=== PATIENT | male | born 1975 | race Caucasian/White ===

== ENCOUNTER 2019-09-29 14:16 | Outpatient (CLI) | payer BC, SELFPAY ==
--- NOTE | 2019-10-07 03:31 | SLEEP_ITS ---
DATE OF STUDY: 09/29/2019 ORDERING PHYSICIAN: Edenilson Holm M.D. REASON FOR THIS STUDY: Non-restorative sleep, loud snoring. HISTORY: This patient is a 44-year-old male, who is 62 inches tall, weighing 230 pounds with a body mass index of 29.5. He has a history of loud snoring, restless, non-restorative sleep and feeling tired when he awakens. For the last 10-15 years, he has had snoring and daytime fatigue, which is getting worse over the last 3 years. He constantly snores loudly enough that others complain about it. He occasionally awakens at night with heartburn, belching, or coughing. He frequently awakens from sleep feeling short of breath. He occasionally has trouble sleeping with a cold. He rarely wakes up gasping for breath at night. He constantly has breathing problems witnessed by others. He frequently sweats excessively at night and occasionally notices his heart pounding or beating irregularly at night. He does not fall asleep during the day, does not fall asleep while driving, does not fall asleep with physical effort and does not have loss of muscle tone with strong emotion. He occasionally has daytime difficulties at work due to sleepiness. 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 He denies feeling paralyzed on waking or falling asleep. He does not have vivid dreamlike scenes upon awakening or falling asleep and he is not afraid to go to sleep. He occasionally has nightmares, occasionally remembers his dreams. He frequently has racing thoughts. He occasionally feels sad, depressed. Rarely feels anxious. He occasionally has muscular tension. He does not notice parts of his body jerking at night. He does not report kicking during the night. He does not have crawly achy feeling in his legs, does not have leg pain at night, does not have morning jaw pain. Occasionally, he does grind his teeth during sleep. He frequently is bothered by pain during the day. He rarely is awakened by pain at night. He constantly wakes up feeling stiff in the morning, frequently with sore achy muscles, rarely with pain in the neck and spine. He has stomach problems, memory problems, concentration difficulties, nightmares, and depression. Normal bedtime is 11 p.m., falling asleep instantly, waking at least 3-4 times at night and will try to lie still in the bed and fall asleep again. When he does awaken, he states it seems like an hour that he stays awake. He wakes in the morning at 6:30 a.m. He estimates 6-7 hours of sleep at night. On the weekends, he will go to sleep at midnight or 1 a.m. and wakes up at 7:30 a.m. He does not take naps in the afternoon or evening. A short nap can be refreshing. He is usually drowsy in the morning for 2 hours or longer. MEDICAL COMORBIDITIES: Asthma, rhinitis, seasonal allergies, and GERD. MEDICATIONS: 1. Breo inhaler 1 puff daily. 2. Nasacort nasal spray, 1 spray each nostril twice a day. HABITS: Never smoked tobacco. Caffeine, 2 to 3 cups of coffee a day. Alcohol 2-3 beverages a day. No recreational drugs. DESCRIPTION OF STUDY: On the Morgan Sleepiness Scale, his score is 12, elevated. This was conducted as a portable home sleep test using 4 channel monitoring including respiratory effort channel, oxygen saturation channel, snoring channel, and heart rate channel. The study was scored using [facility] guidelines. The apnea-hypopnea index was 2. The oxygen desaturation index is 2. The lowest desaturation is 89%. He had 3 apneas. Two of the apneas were obstructive, 67%, 1 apnea was central, 33%, he had 12 hypopneas, 161 snoring events and spent no time below 88%. He desaturated 13 times. Pulse ranged from 58-98. Average saturation during the study was 93%. IMPRESSION: This home sleep test does not show evidence of significant sleep-disordered breathin
== END 2019-09-29 14:17 | disposition home or self-care (01) ==
LOC: ANHCSM 12-16 14:16
PROVIDERS: PCP Family Medicine; Visit Provider Family Medicine
DX: G47.33 Obstructive sleep apnea (adult) (pediatric) (principal)
CPT/HCPCS: 95806

== ENCOUNTER 2019-10-13 13:26 | Outpatient (CLI) | payer BC, SELFPAY ==
--- NOTE | ~2019-10-13 | XR_ITS ---
XR hand RT min 3V DATE: 10/13/2019 13:55 INDICATION: Injury to first metacarpophalangeal joint one week ago. Pain in fingers. TECHNIQUE: 3 views COMPARISON: None FINDINGS: No fracture or dislocation, periosteal reaction or bone destruction. IMPRESSION: Negative Reviewed, dictated and finalized at location A. IMPRESSION: Negative
== END 2019-10-13 13:27 | disposition home or self-care (01) ==
PROVIDERS: PCP Family Medicine; Visit Provider Family Medicine
DX: M79.644 Pain in right finger(s) (principal)
CPT/HCPCS: 73130

== ENCOUNTER → 2020-09-22 02:43 | Outpatient (CLI) | payer OTHER, SELFPAY ==
[2020-09-22 21:58] LABS: SARS-CoV-2 RNA PCR Negative
== END ==
PROVIDERS: PCP Family Medicine; Visit Provider Internal Medicine Critical Care Medicine
DX: Z01.812 Encounter for preprocedural laboratory examination (principal); Z20.822 Contact with and (suspected) exposure to COVID-19
CPT/HCPCS: C9803; U0003; U0005

== ENCOUNTER 2020-09-25 08:49 | Outpatient (CLI) | payer OTHER, SELFPAY ==
--- NOTE | 2020-10-09 12:28 | WPDSLEEPSTUD ---
Sleep Study Date of Study: 09/25/20 Ordering Provider: Edenilson Holm MD Interpreting Physician: Natalie Meyer MD Sleep Study Type: Polysomnogram Height: 2.08 m Weight: 104.326 kg Body Mass Index: 24.0 Neck Circumference (inches): 17 [place]: 14 Reason for Sleep Study Loud snoring with witnessed apnea Sleep History Edenilson Black is a 45-year-old man who says that his notes very loud snoring and episodes where his breathing is interrupted at night, possible apnea. He does not feel that he gets quality sleep on most nights. He is not wide awake during the day. He feels that he goes in and out of sleep frequently. He is tired and lethargic most days. He has a difficult time focusing. This has worsened over the last 2-3 years. He frequently snores, and frequently loud enough that others complain about it. He does not awaken at night with heartburn, belching or coughing. He occasionally awakens from sleep feeling short of breath. He rarely has trouble sleeping with a cold. He does not wake up gasping for breath at night. He occasionally has breathing problems at night observed by others. He occasionally sweats excessively at night. He does not notice his heart pounding or beating irregularly at night. He occasionally falls asleep during the day, never involuntarily, and never while driving. He does not have loss of muscle tone with strong emotion. He occasionally has daytime difficulties due to extent excessive sleepiness. 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 He does not feel paralyzed on waking or falling asleep. He does not have vivid dreamlike scenes upon awakening or falling asleep. He does not feel afraid to go to sleep. He occasionally has nightmares. He occasionally remembers his dreams. He frequently has racing thoughts. He occasionally feels sad or depressed. He rarely has anxiety. He occasionally has muscular tension. He does not notice part of his body jerking. He does not kick at night and does not have crawling or aching feelings in his legs at night. He denies any kind of leg pain at night. He does not have morning jaw pain. He does not grind his teeth during sleep. He is not bothered by pain during the day. He is not awakened by pain at night. He frequently wakes up feeling stiff in the morning with sore or achy muscles and pain in the neck and spine. He has headaches, nightmares, fatigue, memory problems and concentration difficulties. Normal bedtime is between 11:00 p.m. and 12 midnight falling asleep instantly typically waking several times at night for short period of time. He stays in bed and then eventually is able to go back to sleep. He wakes the morning between 6 and 7:00 a.m.. Weekend schedule is similar. Waking up between 7 and 8:00 a.m.. He does not generally take naps. A short 10 or 15 minute nap may be refreshing. He is usually drowsy in morning for 2 hours or longer. Habits: Never smoked tobacco. Caffeine 3-4 cups of coffee a day. Alcohol 1 or 2 beers per week. No recreational drugs. [facility] Past Medical History Medical History (Updated 10/09/20 @ 13:00 by Natalie Meeyr MD) Mild intermittent asthma Rhinitis Sleep disorder breathing Surgical History Surgical History Hx of 2011 Family History Family History Father Acute myocardial infarction Family history of malignant neoplasm of esophagus Grandparent Acute myocardial infarction Carcinoma of colon Social History Social History Smoking status: Never smoker Alcohol intake: current Medications Home Medications Medication Instructions Recorded Confirmed Type albuterol sulfate 90 mcg/actuation 2 puff INHALATION Q4H PRN gm 06/23/19 06/23/19 History aerosol inhaler fluticasone furoate 200 1 inhalation INHALATION Q24H 06/23/19 1
[2020-10-09 12:49] VITALS: BMI 24.0
== END 2020-09-25 08:50 | disposition home or self-care (01) ==
LOC: ANHCSM 08:49
PROVIDERS: PCP Family Medicine; Visit Provider Family Medicine
DX: G47.33 Obstructive sleep apnea (adult) (pediatric) (principal); G47.10 Hypersomnia, unspecified; G25.81 Restless legs syndrome; R06.83 Snoring
CPT/HCPCS: 95810

== ENCOUNTER 2020-12-22 14:06 | Emergency (ER) | payer OTHER, SELFPAY ==
[2020-12-22 14:18] VITALS: BP 134/92; PULSE 94; RESP 16; TEMP 36.8; O2SAT 98
--- NOTE | 2020-12-22 14:21 | ED.URI ---
HPI - URI/Sore Throat General Chief Complaint: Upper Respiratory Infection Stated Complaint: sinus infection Time Seen by Provider: 12/22/20 14:30 Source: patient and RN notes reviewed Mode of arrival: ambulatory Limitations: no limitations History of Present Illness HPI Narrative: 45-year-old male presents with concern for 1 week history of sinus pressure, left-sided sinus pain, nasal congestion, cough, chest congestion. He denies fever, body aches, chills, sweats, sore throat, loss of sense of taste or smell. Reports he was vaccinated for Covid earlier this year. Reports he has been taking Sudafed, Zyrtec, nasal steroids with no relief MD elicited complaint: nasal congestion Related Data Home Medications Medication Instructions Recorded Confirmed albuterol sulfate 90 mcg/actuation 2 puff INHALATION Q4H PRN gm 06/23/19 12/22/20 aerosol inhaler fluticasone furoate 200 1 inhalation INHALATION Q24H 06/23/19 12/22/20 mcg-vilanterol 25 mcg/dose inhalation powder triamcinolone acetonide 55 mcg 1 spray NASAL DAILY 06/23/19 12/22/20 nasal spray aerosol Allergies Allergy/AdvReac Type Severity Reaction Status Date / Time No Known Allergies Allergy Verified 12/22/20 14:21 Review of Systems Review of Systems: Narrative: CONSTITUTIONAL: Denies malaise, chills, sweats, or fever. EYES: Denies visual changes, redness, or discharge. ENT: Reports rhinorrhea, congestion, sinus pain. Denies otalgia and sore throat. CARDIOVASCULAR: Denies chest pain, palpitations, or edema. RESPIRATORY: Reports cough. Denies dyspnea. GASTROINTESTINAL: Denies abdominal pain, nausea, vomiting, diarrhea SKIN: Denies rash or itching. MUSCULOSKELETAL: Denies myalgia. NEUROLOGIC: Denies headache. All systems reviewed & are unremarkable except as noted in HPI and below PMFSH Past Medical History Medical History (Updated 12/22/20 @ 14:42 by Noy Parham NP) Mild intermittent asthma Rhinitis Sleep disorder breathing Surgical History Surgical History Hx of 2011 Family History Family History Father Acute myocardial infarction Family history of malignant neoplasm of esophagus Grandparent Acute myocardial infarction Carcinoma of colon Social History Social History Smoking status: Never smoker Alcohol intake: current Comments At time of signature, agree with nursing past medical, surgical, social and family history. There is no relevant family history pertinent to the presenting complaint Exam Narrative: Exam Narrative: GENERAL: Well-appearing, well-nourished, and in no acute distress. HEAD: Normocephalic EYES: PERRLA, conjunctivae clear ENT: Nares clear, turbinates edematous and erythematous, sinus tenderness. Mucous membranes moist. TM pearly patino with dull light reflex bilaterally; no tragal tenderness. Oropharynx erythematous without lesions. Tonsils not enlarged and without exudate, no drooling, no hoarseness, no trismus, uvula midline. NECK: Supple. No lymphadenopathy CHEST: Clear to auscultation, breath sounds equal. No wheezing, rhonchi, rales, or stridor. No respiratory distress, speaks in full sentences. HEART: Regular rate and rhythm. No murmur heard. SKIN: Warm, dry, no rash. NEURO: Alert and oriented x3. PSYCH: Normal mood and affect Course Course Emergency Course: Patient is aware of diagnosis, understands and agrees to treatment plan. Anticipatory guidance given. Patient agrees to follow-up as directed and is aware of reasons to seek care at the emergency department. Portions of this record may have been created with voice recognition software Vital Signs Vital signs: Vital Signs Temperature 98.3 F 12/22/20 14:18 Pulse Rate 94 12/22/20 14:18 Respiratory Rate 16 12/22/20 14:18 Blood Pressure 134/92 H 12/22/20 14:18 Pulse
== END 2020-12-22 14:48 | disposition home or self-care (01) ==
PROVIDERS: Emergency Provider Nurse Practitioner; PCP Family Medicine
DX: J32.9 Chronic sinusitis, unspecified (principal); J40 Bronchitis, not specified as acute or chronic; J45.909 Unspecified asthma, uncomplicated
CPT/HCPCS: 99213; G0463

== ENCOUNTER 2022-04-19 08:33 | Outpatient (CLI) | payer OTHER, SELFPAY ==
[2022-04-19 20:02] LABS: Alanine Aminotransferase 30 U/L (6-50); Albumin Level 4.5 g/dL (3.5-5.1); Alkaline Phosphatase 64 U/L (38-126); Anion Gap 11 mmol/L (8-16); Aspartate Amino Transferase 55 U/L (17-59); Bilirubin,Total 0.8 mg/dL (0.2-1.3); Blood Urea Nitrogen 13 mg/dL (9-20); Calcium 9.2 mg/dL (8.4-10.2); Carbon Dioxide 25 mmol/L (22-30); Chloride 104 mmol/L (98-107); Cholesterol 141 mg/dL (0-200); Estimated Glomerular Filt Rate > 60; Glucose 87 mg/dL (65-110); HDL Direct 29 mg/dL; Potassium 4.3 mmol/L (3.4-5.0); Sodium 140 mmol/L (137-145); Triglycerides 225 mg/dL (<150)
[2022-04-19 20:13] LABS: LDL Cholesterol Direct 48 mg/dL
== END 2022-04-19 08:34 | disposition home or self-care (01) ==
LOC: ANHGOSHLAB 08:34
PROVIDERS: PCP Family Medicine; Visit Provider Family Medicine
DX: E78.5 Hyperlipidemia, unspecified (principal)
CPT/HCPCS: 36415; 80053; 80061

== ENCOUNTER → 2023-01-24 11:42 | Outpatient (CLI) | payer OTHER, SELFPAY ==
--- NOTE | ~2023-01-24 | XR_ITS ---
Right Shoulder Technique: AP and axillary views were obtained. Clinical History: Pain Findings: No fracture or dislocation is seen. Osseous alignment is anatomic. The glenohumeral and acr omioclavicular joint spaces are preserved. Soft tissues are unremarkable. Impression: Unremarkable right shoulder radiographs. Reviewed, dictated and finalized at [facility]. Impression: Unremarkable right shoulder radiographs.
== END ==
PROVIDERS: PCP Family Medicine; Visit Provider Nurse Practitioner Family
DX: M25.511 Pain in right shoulder (principal)
CPT/HCPCS: 73030

== ENCOUNTER → 2023-03-14 10:50 | Outpatient (CLI) | payer OTHER, SELFPAY ==
--- NOTE | ~2023-03-14 | MR_ITS ---
EXAMINATION: MR shoulder RT wo con DATE: 03/14/2023 11:22 INDICATION: Unspecified right shoulder pain TECHNIQUE: Magnetic resonance imaging (MRI) of the right shoulder was performed without intravenous c ontrast. Sequences included axial PD-weighted FS FSE, coronal oblique PD-weighted FS FSE, coronal obl ique T2-weighted FS FSE, sagittal PD-weighted FS FSE, and sagittal T1-weighted SE. COMPARISON: None. FINDINGS: Coracoacromial arch: The acromion undersurface is curved in morphology (type II). The coracoacromial ligament is normal. M ild acromioclavicular osteoarthritis. Rotator cuff: The supraspinatus, infraspinatus and teres minor tendons are normal. The subscapularis tendon is norm al. Normal rotator cuff muscle bulk and signal. Biceps tendon, glenoid labrum and glenohumeral cartilage: Long head of the biceps tendon is normal. Glenoid labrum is normal. There is a small tear at the 10:3 0-11:00 position of the posterosuperior glenoid labrum. Fluid: Physiologic amount of fluid in the glenohumeral joint and biceps tendon sheath. No loose osteochondr al bodies. Small amount of fluid in the subacromial/subdeltoid bursa consistent with mild bursitis. Bones: There are couple small low signal intensity bone islands at the apex of the humeral head. Otherwise n ormal marrow signal with no edema, fracture or pathologic marrow replacing process. IMPRESSION: 1. Small tear at the posterosuperior glenoid labrum. Reviewed, dictated and finalized at location B.
== END ==
PROVIDERS: PCP Nurse Practitioner Family; Visit Provider Nurse Practitioner Family
DX: S43.431A Superior glenoid labrum lesion of right shoulder, initial encounter (principal); X58.XXXA Exposure to other specified factors, initial encounter
CPT/HCPCS: 73221